=== PATIENT | female | born 1975 | race Caucasian/White ===

== ENCOUNTER 2018-03-08 12:36 | Observation (INO) ==
[2018-03-08] MEDS ORDERED: 0.9 % Sodium Chloride 1,000 ML IVC SCH (12:45)
--- NOTE | 2018-03-08 12:54 | Emergency Department Note ---
Disposition Clinical Impression: Pancreatitis, UTI (urinary tract infection) Disposition: Admitted As Inpatient Referrals: Natalia Klein CNP [Primary Care Provider] - General Adult HPI - General Stated complaint: 'Possible Pancreatitis' Time Seen by Provider: 03/08/18 12:39 Source: patient Mode of arrival: ambulatory Limitations: no limitations Nursing Notes Reviewed: Yes Vital Signs Reviewed: Yes - History of Present Illness HPI Narrative: Patient with your family physician's office about a week ago for epigastric pain and was diagnosed with urinary tract infection and placed on Cipro which she has been taking. She was called earlier today and told to go to the ER because her "numbers" were good she does not know what numbers were not good. She states the pain is not any better than it has been but it is really not any worse either. Nothing seems to make it better or worse she denies any nausea vomiting or fever. She occasionally feels chilled but thinks it might be from the pain. She not had any urinary symptoms or diarrhea. She has never had anything like this before. She denies taking medicine daily. Onset (ago): day(s) () Location: abdomen Radiation: back Pain Severity: moderate Quality: burning, stabbing Consistency: constant Improves with: nothing Worsens with: nothing Associated symptoms: Reports: denies other symptoms Treatments Prior to Arrival: other (cipro) - Related Data Home Medications Medication Instructions Recorded Confirmed Pnv No.122/Iron/Folic Acid 1 tab PO DAILY 12/09/17 12/09/17 [ Multi Tablet] Previous Rx's Medication Instructions Recorded Acetaminophen [Tylenol] 650 mg PO Q6HR PRN #12 tablet 12/10/17 Cefdinir [Omnicef] 300 mg PO BID 5 Days #10 capsule 12/10/17 Tamsulosin [Flomax] 0.4 mg PO DAILY #15 capsule 12/10/17 Allergies Allergy/AdvReac Type Severity Reaction Status Date / Time No Known Allergies Allergy Verified 12/09/17 08:41 All systems ED: reviewed and negative except as stated. Review of Systems: As Per HPI Constitutional: Reports: as per HPI, chills Eyes: Denies: eye pain, eye discharge, vision change ENT ED: Denies: ear pain, throat pain, dental pain, hearing loss, epistaxis, congestion, dysphagia Cardiovascular: Denies: chest pain, palpitations, dyspnea on exertion, edema, syncope Respiratory: Denies: cough, dyspnea, wheezes, hemoptysis, stridor Gastrointestinal: Reports: as per HPI, abdominal pain. Denies: nausea, vomiting, diarrhea, constipation, hematochezia Genitourinary: Denies: dysuria, frequency, hematuria, discharge Musculoskeletal: Reports: as per HPI, back pain Integumentary: Denies: rash, abrasion, lesions Neurological: Denies: headache, weakness, numbness, paresthesias, confusion, abnormal gait, vertigo Psychiatric: Denies: anxiety, depression, suicidal thoughts, homicidal thoughts, auditory hallucinations, visual hallucinations Endocrine: Denies: fatigue Hematological/Lymphatic: Denies: easy bleeding, easy bruising Past Medical History - Past Medical History Attestation: Yes The following information was validated with the patient. Source: patient Medical history: Reports: diabetes, kidney stones Surgical history: Reports: appendectomy Psychiatric history: Reports: no psych history MANAGER OF DATA history: Reports: no MANAGER OF DATA history - Social History Smoking Status: Current every day smoker Smokeless Tobacco Status: No Alcohol use: Reports: none Drug use: Reports: none Physical Exam - General Limitations: no limitations General appearance: alert, in no apparent distress - Head Head exam: atraumatic, normocephalic, normal inspection - Eye Eye exam: Present: normal appearance, PERRL, EOMI - ENT ENT exam: normal exam, normal oropharynx, mucous membranes moist - Neck Neck exam: Present: normal inspection, full ROM, trachea midline - Chest Chest inspection: Present: normal inspection, symmetric chest wall rise - Respiratory Respiratory exam: Present: normal lung sounds bilaterally - Cardiovascular Cardiovascular exam: Present: regular rate, normal rhythm, normal heart sounds - Abdominal Exam Abdominal exam: Present: soft, Non-Tender. Absent: tenderness, distention, guarding, rebound, rigidity - Extremities Exam Extremities exam: Present: normal inspection, full ROM. Absent: tenderness, pedal edema - Back Exam Back exam: Present: normal inspection - Neurological Exam Neurological exam: Present: alert, oriented X3 - Psychiatric Psychiatric exam: Present: normal affect, normal mood - Skin Skin exam: Present: warm, dry, intact Medical Decision Making - MDM Narrative Medical decision making narrative: I reviewed the patient's medication list I discussed the case with Dr. Centeno who has graciously accepted admission - Lab Data Lab results reviewed: Yes I reviewed the patient's lab results. - Radiology Data Radiology results reviewed: Yes I reviewed the patient's radiology results. - EKG Data EKG #1 EKG attestation: Yes I reviewed and interpreted this EKG. EKG results narrative: EKG obtained shows sinus rhythm with a rate of 93 bpm intervals 147 ms QRS duration 92 ms QT interval 338 QTc interval 388 ms R axis of 15 degrees no acute ischemic changes appreciated.
[2018-03-08 13:03] LABS: Basophils % 0.3 %; Eosinophils # 0.2 K/mcL (0.0-0.6); Eosinophils % 1.8 %; Hemoglobin 13.5 g/dL (11.5-15.4); Immature Granulocytes % 0.4 % (0-4); Lymphocytes # 2.1 K/mcL (0.6-4.6); Lymphocytes % 18.2 %; Mean Corpuscular HGB Conc 33.8 g/dL (31.6-35.5); Mean Corpuscular Hemoglobin 28.1 pg (28.0-33.3); Mean Corpuscular Volume 83.2 fL (83.0-100.0); Mean Platelet Volume 9.7 fL (9.4-12.4); Monocytes # 0.5 K/mcL (0.0-1.3); Monocytes % 3.9 %; Neutrophils # 8.8 K/mcL (1.6-8.9); Platelet Count 219 K/mcL (140-400); Red Blood Count 4.81 M/mcL (3.82-4.97); Segmented Neutrophils % 75.4 %
[2018-03-08 13:06] LABS: Bilirubin,Urine Negative (Negative); Blood,Urine Moderate (Negative); Clarity,Urine Clear (Clear); Color,Urine Yellow (Yellow); Glucose,Urine (UA) 100 mg/dL (Normal); Ketones,Urine Negative (Negative); Leukocyte Esterase,Urine Large (Negative); Nitrite,Urine Negative (Negative); PH,Urine 5.5 pH Units (5.0-8.0); Protein,Urine Trace mg/dL (Neg-Trace); Specific Gravity,Urine 1.015 (1.010-1.025); Urobilinogen,Urine Normal (Normal)
[2018-03-08 13:16] LABS: Bacteria,Urine Moderate per hpf (None-Few); RBC,Urine 30-50 per hpf (0-3); Squamous Epithelial Cell,Urine Few per lpf (None-Few); Trichomonas,Urine Present (None Seen); WBC,Urine TNTC per hpf (0-3)
[2018-03-08 13:18] LABS: Alanine Aminotransferase 17 Units/L (7-52); Albumin 4.3 g/dL (3.5-5.7); Albumin/Globulin Ratio 1.3 (1.1-2.2); Alkaline Phosphatase 87 Units/L (34-104); Amylase 173 Units/L (29-103); Aspartate Amino Transferase 14 Units/L (13-39); BUN/Creatinine Ratio 21 (6-26); Bilirubin,Total 0.3 mg/dL (0.3-1.0); Blood Urea Nitrogen 14 mg/dL (6-20); Calcium 9.3 mg/dL (8.6-10.3); Carbon Dioxide 23 mEq/L (23-29); Chloride 105 mEq/L (98-107); Globulin 3.4 g/dL (2.4-3.5); Glucose 173 mg/dL (70-105); Lipase 491 Units/L (11-82); Osmolality,Calculated 287 (280-300); Potassium 3.8 mEq/L (3.5-5.1); Sodium 136 mEq/L (136-145); Total Protein 7.7 g/dL (6.4-8.9); eGFR For Non-African Americans > 60 (> 60)
[2018-03-08 13:20] LABS: INR 1.1; Prothrombin Time 12.1 Seconds (9.4-12.1)
[2018-03-08 13:22] LABS: Troponin I < 0.03 ng/mL (< 0.04)
[2018-03-08 13:23] LABS: Activated Partial Thrombo Time 40.2 Seconds (26.0-36.0)
[2018-03-08] MEDS ORDERED: cefTRIAXone 2,000 MG in 0.9 % Sodium Chloride Mini Bag 100 ML IVPB ONE (14:14)
--- NOTE | 2018-03-08 15:27 | Internal Med History&Physical ---
Addendum entered and electronically signed by Javier Centeno MD 03/09/18 12:19: I have personally performed a face to face evaluation on this patient. I have r eviewed and agree with the care plan. History and Exam by me shows: weeks of symptoms at epigastrium. She states that this was thought to be GERD with reflux but then recurred medicine did not help her. She was treated with Cipro, as well, for infection and no nephritis. She had a stent with basket removal of a 9 mm stone, approximately 2 months ago. She denies hematemesis, melena, hematochezia, etc. Most of her pain has been in the epigastrium although she still has right flank and kidney pain left over from her nephrolithiasis. She denies hematuria or dysuria. She has no history of alcohol intake, alcoholism, ultrasound of gallbladder, cholecystitis or gallstones, etc. She has no fevers but states the pain has given her chills, for the last couple of weeks. She was referred to the emergency room by her family doctor because of abnormal lab tests showing elevated pancreatic enzymes. Patient has no complaint of chest discomfort, dyspnea, orthopnea, breathing problems, palpitations, nausea or vomiting, constipation or diarrhea, other changes in bowel habits, heartburn, difficulty with urination, kidney problems or kidney stones, fevers chills or sweats, rash or itching, seizures, headache or lightheadedness, heat or cold intolerance, blood problems or anemia, or other new complaints, except as mentioned above. Review of systems is otherwise negative. Examination: (Except as mentioned above): General: In no apparent distress, alert and oriented 3. Head: Atraumatic and normocephalic. Eyes: Extraocular muscles are intact, pupils equal round and reactive to light and accommodation. Sclerae anicteric. Ears: External ears are normal to inspection and hearing is grossly normal. Nose: Patent without lesion noted. Mouth: No intraoral lesions seen. Dentition is unremarkable. Neck: Supple with trachea midline. There is no thyromegaly or adenopathy and carotids are 2+ without bruit heard. Respiratory: No use of accessory muscles. Lungs are clear throughout. Normal airflow. Cardiovascular: Regular rate and rhythm without murmur appreciated. Abdomen: Bowel sounds are normal. No hepatosplenomegaly masses but does have diffuse tenderness, worse at the epigastrium. Mild at the suprapubic region. She has minimal tenderness at the right costal vertebral angle. This is subjective and not demonstrable, objectively. Obese and therefore difficult to palpate deeply. Extremities: No cyanosis clubbing or edema. Neurological: A and O 3. Cranial nerves II through XII are intact. No focal deficits and no abnormal movements or postures. Skin: Warm and non-diaphoretic with no lesions noted. She has a a few tattoos. Breasts, pelvic and rectal: Not examined. We discussed her need to quit smoking. I also encouraged her to quit with her, who is present at this time. I discussed plans and management with patient and . They would like to attend her grandmothers tomorrow. I told her that we would try to discharge her but only she could tolerate liquids and then a diet. If she continues to have pain, we will need to keep her for several days of IV fluids. We cannot get an ultrasound of her gallbladder today but may try tomorrow, if she stays. Otherwise, she will need to have ultrasound sometime in the next week or so, as an outpatient. Because of her consistent pain and small intra-renal nephrolithiasis, we will ask that she continue a cephalosporin antibiotic for 10 days or at least until seen and/or changed by the urologist, Dr. Soriano. She has mild elevation of her glucose and this will need to be followed by primary care physician, especially given her pancreatitis and history of gravid diabetes. Original Note: Date of Encounter: 03/08/18 Time of Encounter: 15:29 Assessment and Plan (1) Pancreatitis Current visit: Yes Status: Acute Will monitor amylase and lipase. Continue IV fluids.continue NPO. monitor pain Qualifiers: Chronicity: acute Pancreatitis type: unspecified pancreatitis type Acute pancreatitis complication: unspecified Qualified Code(s): K85.90 - Acute pancreatitis without necrosis or infection, unspecified (2) UTI (urinary tract infection) Current visit: Yes Status: Acute culture pending. Qualifiers: Urinary tract infection type: site unspecified Hematuria presence: without hematuria Qualified Code(s): N39.0 - Urinary tract infection, site not specified Internal Medicine - H&P: HPI Admitted From: Emergency Dept Plans for Post Hospital Care: Home History of present illness: Ms. Dao is a 42 year old female admitted for observation from the ER. pt having right sided abd pain and back pain for the last week. was treated with cipro for UTI. Should not denies fever, chills, nausea vomiting or diarrhea. Denies shortness of breath or chest pain. denies any urinary symptoms. Was found to have elevated amylase and lipase. Urinalysis also positive. Culture is pending. Was given antibiotic and the emergency room. Past Med Surg Social Fam HX - Past Medical History Medical history: diabetes, kidney stones Psychiatric history: no psych history - Past Surgical History Surgical History: appendectomy Additional surgical history: Abd surgery - Social History Smoking Status: Current every day smoker Smokeless Tobacco Status: No Alcohol use: none Drug use: none - Family History Mother Living Status: Still Living Hx Family Cardiac Disorders: Yes Hx Family Endocrine Disorder: Yes (Diabetes) Father Family Member Ethnicity: Non- Hx Family Cardiac Disorders: Yes (Ventricular fibrillation requiring pacer) Sister Hx Family Cancer: Yes (Brain) Internal Medicine - H&P: Meds Pnv No.122/Iron/Folic Acid [ Multi Tablet] 1 tab PO DAILY 12/09/17 [History] Acetaminophen [Tylenol] 650 mg PO Q6HR PRN #12 tablet 12/10/17 [Rx] Cefdinir [Omnicef] 300 mg PO BID 5 Days #10 capsule 12/10/17 [Rx] Tamsulosin [Flomax] 0.4 mg PO DAILY #15 capsule 12/10/17 [Rx] Allergy/AdvReac Type Severity Reaction Status Date / Time No Known Allergies Allergy Verified 12/09/17 08:41 All Systems PM: A 10-system review of systems was performed and is negative for pertinent find ings except as documented above in the HPI. - Constitutional Constitutional: no chills, no fever(s), no night sweats - EENT Eyes: no change in vision, no discharge, no pain, no photophobia Ears: no ear discharge, no ear pain, no tinnitus Nose, mouth and throat: no dysphagia, no nasal discharge, no neck pain, no sore throat - Cardiovascular Cardiovascular ROS IM: no chest pain, no diaphoresis, no dyspnea, no lightheadedness, no palpitations, no syncope - Respiratory Respiratory: no cough, no dyspnea, no wheezing, no excessive phlegm production - Gastrointestinal Gastrointestinal: no abdominal pain, no diarrhea, no hematemesis, no hematochezia, no melena, no nausea, no vomiting - Genitourinary Genitourinary: no change in urinary stream, no dysuria, no flank pain, no hematuria - Musculoskeletal Musculoskeletal ROS IM: no numbness, no tingling - Integumentary Integumentary IM: no rash, no unusual bruising - Neurological Neurological ROS: no confusion, no convulsions, no focal weakness, no numbness, no tingling, no tremor(s) - Hematologic/Lymphatic Hematologic/Lymphatic: no easy bruising - Constitutional Vitals: Temp Pulse Resp BP Pulse Ox 98.2 F 74 16 115/73 98 03/08/18 12:41 03/08/18 14:37 03/08/18 14:37 03/08/18 14:37 03/08/18 14:37 General appearance: Present: cooperative, A&O X 3, pleasant, no acute distress, answers questions appropriately - Head Head exam: Present: atraumatic, normocephalic - Eye Eye exam: Present: PERRL, conjuntiva pink, sclera anicteric Pupils: Present: PERRL - Neck Neck exam general surgery: Present: supple, trachea midline. Absent: lymphadenopathy - Respiratory Respiratory exam: Present: CTAB. Absent: accessory muscle use, rales, rhonchi, wheezes - Cardiovascular Cardiovascular exam: Present: RRR, +S1, +S2. Absent: diastolic murmur, gallop, rubs, systolic murmur - GI/Abdominal GI/Abdominal exam: Present: normal bowel sounds, soft. Absent: distended, tenderness - Extremities Exam Extremities exam: Present: warm, radial pulses palpable and symmetrical. Absent: calf tenderness, cyanotic, pedal edema - Neurological Exam Neurological exam: Present: CN II-XII intact, oriented X3, no focal deficits. Absent: pronater drift, facial droop, speech deficit - Skin Skin exam: Present: dry, intact Internal Med - H&P Results - Labs CBC & Chem 7: 03/08/18 12:55 03/08/18 12:55 Labs: Short CBC 03/08/18 Range/Units 12:55 WBC 11.7 H (4.3-11.1) K/mcL Hgb 13.5 (11.5-15.4) g/dL Hct 40.0 (35.3-44.9) % Plt Count 219 (140-400) K/mcL Neutrophils # 8.8 (1.6-8.9) K/mcL BMP 03/08/18 12:55 Sodium 136 Potassium 3.8 Chloride 105 Carbon Dioxide 23 BUN 14 Creatinine 0.68 Glucose 173 H Calcium 9.3 Cardiac Enzymes 03/08/18 Range/Units 12:55 Troponin I < 0.03 (< 0.04) ng/mL Liver Function 03/08/18 Range/Units 12:55 Total Bilirubin 0.3 (0.3-1.0) mg/dL AST 14 (13-39) Units/L ALT 17 (7-52) Units/L Alkaline Phosphatase 87 (34-104) Units/L Albumin 4.3 (3.5-5.7) g/dL Urine 03/08/18 Range/Units 12:55 Urine Color Yellow (Yellow) Urine Clarity Clear (Clear) Urine pH 5.5 (5.0-8.0) pH Units Ur Specific [place] 1.015 (1.010-1.025) Urine Protein Trace (Neg-Trace) mg/dL Urine Glucose (UA) 100 H (Normal) mg/dL - Impressions ITS Impressions Abdomen/Pelvis CT 03/08/18 12:41 IMPRESSION: Small bilateral renal calculi which are nonobstructive. No ureteral calculi are visualized. D/ / 03/08/2018 13:47:39 Kyle Arvizu MD / [facility] Interpreting Provider: Kyle Arvizu MD Chest X-Ray 03/08/18 12:43 IMPRESSION: No significant findings in the chest. D/ / Spencer Allison MD / Spencer Allison MD Interpreting Provider: Spencer Allison MD
[2018-03-08] MEDS ORDERED: Azithromycin 500 MG in D5% in Water 250 ML IVPB SCH ×2 (16:00→17:00)
[2018-03-08] MEDS ORDERED: Ondansetron ODT 4 MG TAB.RAPDIS SL PRN (16:18)
[2018-03-08] MEDS ORDERED: Acetaminophen 325 MG TABLET PO PRN ×2 (16:28→16:57)
[2018-03-08] MEDS ORDERED: D5% in 0.45% NACL 1,000 ML IVC SCH (16:30)
[2018-03-08] MEDS ORDERED: OXYCODONE Oral CONC 10 MG/0.5 ML ORAL.SYG SL PRN (16:47)
[2018-03-08] MEDS ORDERED: Naloxone 0.4 MG/ML INJ IVP PRN (16:57)
[2018-03-08] MEDS ORDERED: Azithromycin 1,000 MG in D5% in Water 250 ML IVPB ONE (16:57)
[2018-03-08] MEDS: Ondansetron ODT 4 MG TAB.RAPDIS SL PRN (17:22)
[2018-03-08] MEDS: OXYCODONE Oral CONC 10 MG/0.5 ML ORAL.SYG SL PRN ×2 (17:27→21:52)
[2018-03-08] MEDS: D5% in 0.45% NACL 1,000 ML IVC SCH (21:14)
[2018-03-09] MEDS: OXYCODONE Oral CONC 10 MG/0.5 ML ORAL.SYG SL PRN ×3 (04:19→13:34)
[2018-03-09] MEDS: D5% in 0.45% NACL 1,000 ML IVC SCH ×2 (05:15→14:24)
[2018-03-09 05:46] LABS: Basophils # 0.1 K/mcL (0.0-0.2); Basophils % 0.5 %; Eosinophils # 0.3 K/mcL (0.0-0.6); Hematocrit 34.4 % (35.3-44.9); Hemoglobin 11.4 g/dL (11.5-15.4); Immature Granulocytes % 0.5 % (0-4); Lymphocytes # 2.8 K/mcL (0.6-4.6); Lymphocytes % 26.8 %; Mean Corpuscular HGB Conc 33.1 g/dL (31.6-35.5); Mean Corpuscular Hemoglobin 27.7 pg (28.0-33.3); Mean Corpuscular Volume 83.7 fL (83.0-100.0); Mean Platelet Volume 9.6 fL (9.4-12.4); Monocytes # 0.5 K/mcL (0.0-1.3); Monocytes % 4.8 %; Neutrophils # 6.8 K/mcL (1.6-8.9); Platelet Count 175 K/mcL (140-400); Red Blood Count 4.11 M/mcL (3.82-4.97); Segmented Neutrophils % 64.4 %
[2018-03-09 06:04] LABS: Amylase 138 Units/L (29-103); Lipase 401 Units/L (11-82)
[2018-03-09 06:06] LABS: BUN/Creatinine Ratio 16 (6-26); Blood Urea Nitrogen 10 mg/dL (6-20); Calcium 8.1 mg/dL (8.6-10.3); Carbon Dioxide 24 mEq/L (23-29); Chloride 108 mEq/L (98-107); Chol/HDL Ratio 4.3 (0-4.9); Cholesterol 146 mg/dL (< 200); Glucose 169 mg/dL (70-105); HDL Cholesterol 34 mg/dL (40-59); LDL Cholesterol,Calculated 89 mg/dL (0-99); Osmolality,Calculated 283 (280-300); Potassium 3.6 mEq/L (3.5-5.1); Sodium 135 mEq/L (136-145); Triglycerides 116 mg/dL (< 150); eGFR For Non-African Americans > 60 (> 60)
[2018-03-09 07:21] VITALS: BP 125/76
[2018-03-09] MEDS: Ondansetron ODT 4 MG TAB.RAPDIS SL PRN (10:55)
--- NOTE | 2018-03-09 11:15 | Discharge Summary ---
Orders not resulted at time of discharge: Pending orders 03/08/18 12:55 Culture,Urine [RM] Stat Date of Encounter: 03/09/18 Time of Encounter: 11:11 - Discharge Diagnosis (1) Pancreatitis Priority: Primary Status: Acute Comments: will start a clear liquid diet and increase as tolerate. labs improving. pain controlled with current meds. denies N/V. plan to ultrasound gallbladder if not discharging today. if discharging, my have ultrasound as outpatient. Qualifiers: Chronicity: acute Pancreatitis type: unspecified pancreatitis type Acute pancreatitis complication: unspecified Qualified Code(s): K85.90 - Acute pancreatitis without necrosis or infection, unspecified (2) UTI (urinary tract infection) Priority: Primary Status: Acute Comments: recent hx of kidney stones. CT shows nonobstructed stones. will continue PO atb. follow up with urology and PCP. Qualifiers: Urinary tract infection type: site unspecified Hematuria presence: without hematuria Qualified Code(s): N39.0 - Urinary tract infection, site not specified Hospital course: Ms. Dao is a 42 year old female admitted for pancreatitis. Patient started on NPO diet. Given IV fluids. Labs improving. Trying clear liquid diet. If tolerates will upgrade diet. Pain controlled with oxycodone. Denies nausea or vomiting. Recent history of kidney stones. CT scan shows non-obstructive stones. Will continue omnicef. Discharge today if tolerating PO diet. Will provide scripts for antibiotics, Zofran and oxycodone. Follow up with PCP and urology. Recommend gallbladder ultrasound. Denies fever, chills, shortness of breath or chest pain. Discharge discussed with: patient, family, nurse - Time Spent with Patient Total time spent providing and/or coordinating discharge services: Less than 30 minutes - Discharge Medications Home Medications: Pnv No.122/Iron/Folic Acid [ Multi Tablet] 1 tab PO DAILY 12/09/17 [History] Acetaminophen [Tylenol] 650 mg PO Q6HR PRN #12 tablet 12/10/17 [Rx] Tamsulosin [Flomax] 0.4 mg PO DAILY #15 capsule 12/10/17 [Rx] Cefdinir [Omnicef] 300 mg PO BID 7 Days #14 capsule 03/09/18 [Rx] Ondansetron ODT [Zofran ODT] 4 mg SL Q6HR PRN 5 Days #20 tab.rapdis 03/09/18 [Rx] Allergies/Adverse Reactions: Allergy/AdvReac Type Severity Reaction Status Date / Time No Known Allergies Allergy Verified 12/09/17 08:41 Date of admission: 03/08/18 14:35 Primary care physician: Natalia Klein, [facility] Discharging clinician: Javier Centeno Anticipated date of discharge: 03/09/18 - Constitutional Vitals: Temp Pulse Resp BP Pulse Ox 97.9 F 69 18 125/76 98 03/09/18 07:20 03/09/18 07:20 03/09/18 07:20 03/09/18 07:20 03/09/18 07:20 General appearance: Present: cooperative, A&O X 3, pleasant, no acute distress, answers questions appropriately - Head Head exam: Present: atraumatic, normocephalic - Eye Eye exam: Present: PERRL, conjuntiva pink, sclera anicteric Pupils: Present: PERRL - Neck Neck exam general surgery: Present: supple, trachea midline. Absent: lymphadenopathy - Respiratory Respiratory exam: Present: CTAB. Absent: accessory muscle use, rales, rhonchi, wheezes - Cardiovascular Cardiovascular exam: Present: RRR, +S1, +S2. Absent: diastolic murmur, gallop, rubs, systolic murmur - GI/Abdominal GI/Abdominal exam: Present: normal bowel sounds, soft, no peritoneal signs. Absent: distended, tenderness - Extremities Exam Extremities exam: Present: warm, radial pulses palpable and symmetrical. Absent: calf tenderness, cyanotic, pedal edema - Neurological Exam Neurological exam: Present: CN II-XII intact, oriented X3, no focal deficits. Absent: pronater drift, facial droop, speech deficit - Skin Skin exam: Present: dry, intact - Patient Status Disposition: Home, Self-Care Condition: Good Functional capacity at discharge: independent ambulation Overall status at discharge: patient is progressing back to baseline - Discharge Instructions Forms: ED Satisfaction Letter, Work/School Release - Diet and Activity Activity: increase activity as tolerated Diet: advance to your usual diet
--- NOTE | 2018-03-09 14:18 | Electrocardiograph Report ---
[address] [address] Test Date: 2018-03-08 Pat Name: Neema Dao Department: 2000 Room: 113 Gender: F Consulting Solution Manager: CHILO : 1975 Requested By: Paulie Call Order Number: [id number] Reading MD: Asia Jones Measurements Intervals [place] Rate: 93 P: 46 SC: 147 QRS: 15 QRSD: 92 T: 18 QT: 338 QTc: 388 Interpretive Statements SINUS RHYTHM Electronically Signed On 03-09-2018 14:17:01 EST by Asia Jones
== END 2018-03-09 16:46 | disposition home or self-care (01) ==
LOC: INPGRE 12:36 → EMEROOGRE 12:36 → INPGRE 15:16